=== PATIENT | male | born 1975 | race African-American/Black ===

== ENCOUNTER 2017-06-13 21:26 | Emergency (ER) | payer SELFPAY, OTHER ==
[2017-06-13] MEDS: METHYLPREDNISOLONE 125 MG INJ IM (22:27)
[2017-06-13] MEDS: ALBUTEROL 0.5% (NEB) 2.5 MG/0.5 ML AMP INH (22:27)
[2017-06-13] MEDS: TERBUTALINE 1 MG/ML INJ SC ×2 (22:45→23:21)
[2017-06-13] MEDS: ALBUTEROL 0.083% (NEB) 2.5 MG/3 ML AMP NEB (23:50)
== END 2017-06-14 00:23 | disposition home or self-care (01) ==
LOC: FTE 06-14 00:23
DX: J45.901 Unspecified asthma with (acute) exacerbation (principal); J44.9 Chronic obstructive pulmonary disease, unspecified; F17.210 Nicotine dependence, cigarettes, uncomplicated
CPT/HCPCS: 94644; 94664; 96372; 99284-25